=== PATIENT | female | born 1980 | race Caucasian/White ===

== ENCOUNTER 2019-03-04 13:12 | Emergency (ER) | payer BC ==
[2019-03-04 13:21] VITALS: BP 100/58
--- NOTE | 2019-03-04 13:23 | UC ---
Abdominal Pain Female HPI - HPI Summary HPI Summary: 38 year old female with no prior h/o UTIs presents with symptoms since this AM of cloudy urine, frequency, urgency, + hematuria since this AM, mild lower abdominal pain /10. No prior urinary symptoms. Last menses 1 week ago. NO chance of - History of Current Complaint Stated Complaint: URINARY ISSUE Time Seen by Provider: 03/04/19 13:19 Hx Last Menstrual Period: 2 weeks ago Onset/Duration: Sudden Onset - started this AM Timing: Constant Severity Initially: Moderate Severity Currently: Moderate Pain Scale Used: 0-10 Numeric Location: Suprapubic Character: Aching, Burning, Cramping Associated Signs and Symptoms: Positive: Negative Allergies/Adverse Reactions: Allergies Allergy/AdvReac Type Severity Reaction Status Date / Time No Known Allergies Allergy Verified 03/04/19 13:21 PMH/Surg Hx/FS Hx/Imm Hx - Surgical History Surgical History: Yes Surgery Procedure, Year, and Place: wisdom teeth - Social History Alcohol Use: Weekly Substance Use Type: None Smoking Status (MU): Light Every Day Tobacco Smoker Type: Cigarettes Amount Used/How Often: 1 - cigs/week Length of Time of Smoking/Using Tobacco: 15+ years Review of Systems All Other Systems Reviewed And Are Negative: Yes Genitourinary: Positive: Dysuria, Hematuria, Frequency, Urgency Is Patient Immunocompromised?: No Abd Pain Female Course/Dx - Course Course Of Treatment: UA- + leuks, treated for UTI, increase fluids - Differential Dx/Diagnosis Differential Diagnosis: Constipation, Diverticulitis, , Urinary Tract Infection Provider Diagnosis: UTI (urinary tract infection) Discharge - Sign-Out/Discharge Documenting (check all that apply): Patient Departure All imaging exams completed and their final reports reviewed: No Studies - Discharge Plan Condition: Good Disposition: HOME Prescriptions: Sulfamethox/Trimethoprim DS* [Bactrim DS 800/160 TAB*] 1 tab PO BID #6 tab Patient Education Materials: Urinary Tract Infection in Women (ED) Referrals: Kassandra Faye MD [Primary Care Provider] - Additional Instructions: - Increase fluid intake - Follow up with primary physician within 2-3 days if no improvement, no resolution of symptoms - GO to ER with increased pain, flank pain, fever > 102, decreased urination. - ANtibiotics as directed - Tylenol/ motrin as needed for pain/ cramping. - Over the counter medication for symptom relief - Billing Disposition and Condition Condition: GOOD Disposition: Home - Attestation Statements Provider Attestation: I was available for consult. This patient was seen by the JONATHAN. The patient was not presented to, seen by, or examined by me. -Elizabeth
== END 2019-03-04 13:50 | disposition home or self-care (01) ==
LOC: UCEAST 13:12
DX: N39.0 Urinary tract infection, site not specified (principal); B96.20 Unspecified Escherichia coli [E. coli] as the cause of diseases classified elsewhere; F17.210 Nicotine dependence, cigarettes, uncomplicated
CPT/HCPCS: 81003; 84702; 87077; 87086; 87186; 99211; G0463

== ENCOUNTER 2019-09-26 14:14 | Emergency (ER) | payer BC ==
[2019-09-26 14:29] VITALS: BP 137/90
--- NOTE | 2019-09-26 15:50 | UC ---
Abdominal Pain Female HPI - HPI Summary HPI Summary: Patient's a 39-year-old female who states she's been having progressive urinary urgency frequency and burning for the last 2 days. Patient states she's developed some mild right lower abdominal pain today. Patient has fevers or chills. No back pain. No nausea vomiting. Patient denies any vaginal discharge, itching, or. No concern for an STI. Patient has had a UTI but has been very long time ago. Patient's medications are centered in the EMR by triage was reviewed this visit. Patient states she is not . - History of Current Complaint Chief Complaint: UCGU Stated Complaint: UTI Time Seen by Provider: 09/26/19 15:46 Hx Obtained From: Patient Hx Last Menstrual Period: 2 wks ago Onset/Duration: Gradual Onset Severity Initially: Moderate Severity Currently: Moderate Pain Intensity: 6 Allergies/Adverse Reactions: Allergies Allergy/AdvReac Type Severity Reaction Status Date / Time No Known Allergies Allergy Verified 09/26/19 14:29 Home Medications: Home Medications Control Pill ? Name 1 tab PO DAILY 09/26/19 [History] PMH/Surg Hx/FS Hx/Imm Hx Previously Healthy: Yes - Surgical History Surgical History: Yes Surgery Procedure, Year, and Place: wisdom teeth. 2006 - Family History Known Family History: Positive: Non-Contributory - Social History Occupation: Employed Full-time Lives: With Family Alcohol Use: Occasionally Substance Use Type: None Smoking Status (MU): Former Smoker Type: Cigarettes Amount Used/How Often: 1 - cigs/week Length of Time of Smoking/Using Tobacco: 15+ years Review of Systems All Other Systems Reviewed And Are Negative: Yes Constitutional: Positive: Negative Skin: Positive: Negative Eyes: Positive: Negative Gastrointestinal: Positive: Abdominal Pain - Mild right lower quadrant Genitourinary: Positive: Dysuria, Hematuria, Frequency, Urgency. Negative: Vaginal/Penile Burning, Vaginal/Penile Itching, Vaginal/Penile Discharge, Vaginal/Penile Pain, Vaginal/Penile Tenderness Physical Exam - Summary Physical Exam Summary: Vital Signs Reviewed: Yes A+Ox3, no distress Eyes: Conjunctiva Clear, FATUMA. EOM intact and full ENT: Hearing grossly normal TM x 2 clear, mmoist, uvula midline, no exudate, no erythema Neck: Positive: Supple Respiratory: Positive: No respiratory distress, No accessory muscle use + CTA throughout no w/r Cardiovascular: RRR nl s1, s2 no m/r CBT <2 sec abd soft + BS no CVA, nd, mild suprapubic tenderness with deep palp, just right of midline - no guarding, no distension Musculoskeletal Exam: ALDANA x 4 without difficulty Strength Intact, ROM Intact Neurological: Positive: Alert, + sensation throughout Psychological: Positive: Normal Response To examiner Skin: Positive: no rash, no ecchymosis Triage Information Reviewed: Yes Vital Signs: Initial Vital Signs Temp 98.2 F 09/26/19 14:26 Pulse 71 09/26/19 14:26 Resp 16 09/26/19 14:26 BP 137/90 09/26/19 14:26 Pulse Ox 100 09/26/19 14:26 Abd Pain Female Course/Dx - Course Course Of Treatment: Pt presents with dysuria, hematuria, and frequency progressive x 2 days. mild abd pain. no analgesia taken VSS pt with mild suprapubic discomfort non toxic appearing urine c/w UTI will culture, abx, pyridicum pt states gets vaginal yeast infection - will give prn diflucan d/w pt regarding abdominal pain - need to monitor - if increases, fever or vomiting to ED - cannot completely exclude early appendicitis, but low suspicion. Pt states agreement and understanding of plan - Differential Dx/Diagnosis Provider Diagnosis: Dysuria Discharge ED - Sign-Out/Discharge Documenting (check all that apply): Patient Departure All imaging exams completed and their final reports reviewed: No Studies - Discharge Plan Condition: Stable Disposition: HOME Prescriptions: Fluconazole [Diflucan 150 MG (NF)] 150 mg PO ONCE PRN #1 tab PRN Reason: vaginal yeast infection Nitrofurantoin Monohyd/M-Cryst [Macrobid 100 mg Capsule] 100 mg PO BID #14 cap Phenazopyridine TAB* [Pyridium 100 mg TAB*] 100 mg PO TID PRN #9 tab PRN Reason: burning with urination Patient Education Materials: Urinary Tract Infection in Women (ED) Referrals: Kassandra Faye MD [Primary Care Provider] - Additional Instructions: - stay well hydrated - drink plenty of non-alcoholic, non caffinated beverages - your urine will be further tested - if you require any changes to your treatment, we will contact you - this usually take 2 days - Contact your primary doctor to arrange a follow-up appointment next week. Contact your doctor or return with questions or concerns - Take your antibiotics exactly as prescribed until gone - Take pyridium as prescribed for discomfort. This will make your urine blaze orange - this is normal - Okay to alternate ibuprofen (Advil, Motrin) and Tylenol every 3 hours for pain. Take with food - Call your doctor or return with questions or concern As discussed, monitor your symptoms closely If you develop increased lower abdominal pain, vomiting, fevers, increased pain in your right lower side of your abdomen it is recommended you go to the emergency department for further evaluation and treatment - Billing Disposition and Condition Condition: STABLE Disposition: Home
== END 2019-09-26 16:13 | disposition home or self-care (01) ==
LOC: UCEAST 14:14
DX: R30.0 Dysuria (principal); R31.9 Hematuria, unspecified; R35.0 Frequency of micturition; R10.30 Lower abdominal pain, unspecified; Z87.440 Personal history of urinary (tract) infections; Z87.891 Personal history of nicotine dependence
CPT/HCPCS: 81003; 87077; 87086; 87186; 99212; G0463